=== PATIENT | male | born 1945 | race Caucasian/White ===

== ENCOUNTER 2021-08-28 14:20 | Observation (INO) | payer MEDICARE, SELFPAY ==
[2021-08-28] VITALS (7 sets, daily range): BP systolic 100–148; BP diastolic 73–87; PULSE 65–85; RESP 16–20; TEMP 36.1–36.9; O2SAT 92–97
--- NOTE | 2021-08-28 14:15 | RT.EKG_ITS ---
APPROVED REPORT Exam: Resting ECG Reason for Exam: dizzy Patient Location: E HR:100 bpm ECG Measurements Heart Rate 100 AXIS HI [id number] P [id number] QRSd 105 QRS -48 QT 377 T 144 QTc 487 Conclusion Atrial fibrillation...V-rate 70-125, irreg A-activity Left anterior fascicular block...axis(240,-40), init forces inf. Afib. LAFB. No STEMI. I have reviewed and interpreted ECG and agree with software generated interpretation.
--- NOTE | 2021-08-28 14:30 | DI.RAD_ITS ---
Exam(s) XR PORTABLE CHEST AP EXAM: XR PORTABLE CHEST AP CLINICAL HISTORY: tachcyardiac, dizzy, hypotension TECHNIQUE: 2D digital imaging was performed. COMPARISON: No exams were available for comparison FINDINGS: LUNGS: Clear. No pleural abnormality seen. Overlying monitoring leads. HEART: Enlarged. MEDIASTINUM: Aorta mildly tortuous. BONES: Degenerative changes at the AC joints and thoracic spine. IMPRESSION: No acute pulmonary findings. DATA REPOSITORY: RADIATION DOSE DELIVERED:
--- NOTE | 2021-08-28 14:45 | ED.GENADUL_ITS ---
Discharge Plan Disposition Patient Disposition: [facility] INPATIENT Condition: Stable Discharge Details Clinical Impression: Elevated troponin, Paroxysmal atrial fibrillation with RVR, Dizziness Admit Date/Time: 08/28/21 18:39 Admit Provider: Kali Sherwood Attending Provider: Kali Sherwood Primary Care Provider: None,None ED Provider: Nila Nguyen Discharge Data Discharge Date/Time-TO BE ENTERED AT DEPARTURE: 08/28/21 19:15 Medical Decision Making 75-year-old male with a history of hypertension atrial fibrillation on amlodipine, losartan/HCTZ, metoprolol and Xarelto presents for 4 days of lightheadedness, intermittent hypotension and tachycardia. Denies any chest pain or shortness of breath. EKG notes a rate of 100, atrial fibrillation, left anterior fascicular block, no STEMI, nondiagnostic. Heart rate ranged between 80s and 100 in the room, blood pressure initially 148/87, now 128/78. He denies any symptoms at present. Differential diagnosis includes arrhythmia, ACS, PE, dehydration, electrolyte abnormality. Will obtain screening labs including D-dimer, chest x-ray and give fluids. Labs reviewed. Troponin 98. D-dimer negative. Chest x-ray negative. Will plan for repeat troponin and EKG. Patient remains asymptomatic. Repeat troponin downtrending to 85. Repeat EKG unchanged. Patient's heart rate has remained between 80s and 100s. He states his baseline heart rate is usually 50s-60s. His systolic blood pressure has been in the 110s. We will plan for admission for telemetry monitoring with medication adjustment as his hypotension may be related to his tachycardia as he may have had episodes of rapid A. fib. We will continue trending troponins and EKGs with consideration for placement of monitoring and evaluation advisor upon discharge. Case discussed with hospitalist who accepts patient for admission. Medical Records Medical records reviewed: Yes I reviewed the patient's medical records. Imaging Data Radiologic Study: Radiologist's impression: XR PORTABLE CHEST AP CLINICAL HISTORY:? tachcyardiac, dizzy, hypotension TECHNIQUE:? 2D digital imaging was performed. COMPARISON:? No exams were available for comparison FINDINGS: LUNGS: Clear. No pleural abnormality seen.? Overlying monitoring leads. HEART: Enlarged. MEDIASTINUM: Aorta mildly tortuous. BONES: Degenerative changes at the AC joints and thoracic spine. IMPRESSION: No acute pulmonary findings. Lab Data Lab results reviewed: Yes I reviewed the patient's lab results. ECG Data Attestation: I personally reviewed and interpreted this ECG (s) as follows: Interpretation: rate of 100, afib, no STEMI. HPI General Date/Time Provider Initiated Documentation: 08/28/21 14:20 . Limitations to Documentation: no limitations . Information obtained by: patient . HPI Narrative: Patient is a 75-year-old male presents the ED with a complaint of dizziness for the past few days. Patient states he went snowshoeing the other day and became lightheaded during this activity. He states he then rested and the symptoms improved. He states when he returned home and was sitting the lightheadedness returned. He states he has had intermittent episodes of lightheadedness that occur at rest and with exertion. He states he has checked his blood pressure and it has been lower than usual with systolic of 105. He states his heart rate has been elevated to as high as 122. He denies any specific palpitations, chest pain or shortness of breath. He denies any recent illness including fever, nausea, vomiting, diarrhea, change in his medications, recent known exposure to coronavirus. Patient states he is visiting here from [place] and is currently present of [facility] until this spring and does not have a primary care doctor here. He denies any recent changes in his blood pressure medication and states he has not seen his primary care doctor since March 2021 when he was doing well and noted to have a normal sinus rhythm. Related Data Home Medications Medication Instructions Recorded Confirmed amlodipine 10 mg tablet 10 mg PO DAILY 08/28/21 08/29/21 atorvastatin 40 mg tablet 40 mg PO DAILY 08/28/21 08/29/21 losartan 100 1 tab PO DAILY 08/28/21 08/29/21 mg-hydrochlorothiazide 25 mg tablet metoprolol succinate 50 mg 50 mg PO DAILY 08/28/21 08/29/21 tablet,extended release 24 hr rivaroxaban 20 mg tablet (Xarelto) 20 mg PO DAILY 08/28/21 08/29/21 tamsulosin 0.4 mg capsule 0.4 mg PO DAILY 08/28/21 08/29/21 Allergies Allergy/AdvReac Type Severity Reaction Status Date / Time ibuprofen [From Motrin] Allergy Severe Anaphylaxis Unverified 08/29/21 13:22 General Stated Complaint: Dizzy/Sync HEATHER: 3 Review of Systems All systems reviewed & are unremarkable except as noted in HPI and below Constitutional Constitutional: Reports as per HPI, Denies chills and Denies fever(s) Eyes Eyes: Denies blurry vision ENT Ears, Nose, Mouth, and Throat: Reports dizziness, Denies sore throat and Denies throat swelling Cardiovascular Cardiovascular: Denies chest pain, Reports rapid heart rate and Denies dyspnea Respiratory Respiratory: Denies cough and Denies dyspnea Gastrointestinal Gastrointestinal: Denies abdominal pain, Denies diarrhea and Denies vomiting Genitourinary Genitourinary: Denies hematuria and Denies dysuria Musculoskeletal Musculoskeletal: Denies back pain and Denies numbness Integumentary/Breasts Skin/Breast: Denies lesions and Denies rash Neurologic Neurologic: Reports dizziness, Denies localized weakness and Denies numbness Allergic/Immunologic Allergic/Immunologic: Denies throat swelling PFSH All Active Problems (Updated 08/30/21 @ 00:01 by KEN JARAMILLO) Paroxysmal atrial fibrillation with RVR (Acute) Medical History (Updated 08/30/21 @ 00:01 by KEN JARAMILLO) Atrial fibrillation treated with cardioversion in October 2019 History of cardioversion HTN (hypertension) Surgical History (Updated 08/29/21 @ 13:20 by Nathaniel Morales) History of tonsillectomy Hx of transurethral resection of prostate No significant past surgical history Social History Smoking/Tobacco Use Status: Former Tobacco Use Quit Date: 06/28/68 Smoking risk assessment performed?: Yes Alcohol Intake: current Alcohol Intake frequency: a few times a week Alcohol type: beer Drug use: Never Substance use type: does not use Do you feel safe at home: Yes Do you feel safe in your relationship?: Yes Exam Const General: cooperative, healthy appearing and no acute distress Orientation: alert, awake and oriented x3 HENMT Head: normal to inspection Mouth: oral mucosae normal Eyes General: appearance normal, both eyes and all related structures Neck Neck: normal visual inspection Resp Effort & Inspection: normal respiratory effort and able to speak in complete sentences Auscultation: clear to auscultation bilaterally Cardio Rate: regular rate Rhythm: abnormal rhythm irregularly irregular GI Inspection: normal to inspection Palpation: soft, not firm, no guarding, not rigid and nontender Skin General skin exam: no rashes or lesions noted Neuro General: patient alert, patient awake and patient oriented x3 Motor: muscle tone normal throughout Extrem General: normal to inspection, full ROM and no edema Psych Appearance: grossly normal Affect: normal affect Course Vital Signs Vital signs: Vital Signs Temperature 97.5 F L 08/28/21 14:24 Pulse 82 08/28/21 14:24 Respiratory Rate 18 08/28/21 14:24 Blood Pressure 148/87 H 08/28/21 14:24 Pulse Oximetry 95 08/28/21 14:24 Temperature 97.5 F L 08/28/21 14:24 Temperature Source Temporal Artery Scan 08/28/21 14:24 Pulse 82 08/28/21 14:24 Respiratory Rate 20 08/28/21 14:34 Respiratory Effort Non-Labored 08/28/21 14:34 Respiratory Depth Normal 08/28/21 14:34 Respiratory Pattern Normal 08/28/21 14:34 Blood Pressure 148/87 H 08/28/21 14:24 Blood Pressure Position Sitting 08/28/21 14:24 Pulse Oximetry 95 08/28/21 14:24 Oxygen Delivery Method Room Air 08/28/21 14:24 Oxygen Flow Rate 0 08/28/21 14:24 Pain Level 0 08/28/21 14:34
[2021-08-28 15:04] LABS: Abs Immature Grans 0.02 10^3/uL (0.0-0.06); Absolute Basophil Count 0.04 10^3/uL (0.0-0.2); Absolute Eosinophil Count 0.17 10^3/uL (0.0-0.7); Absolute Monocyte Count 0.47 10^3/uL (0.1-0.8); Absolute Neutrophil Count 4.24 10^3/uL (1.2-6.7); Basophils % 0.6; Eosinophils % 2.4; HCT 44.2 % (40.0-50.0); HGB 15.5 g/dL (13.5-17.5); Immature Grans % 0.3; Lymphocytes % 29.8; MCH 31.1 pg (27.0-33.0); MCHC 35.1 % (32.0-36.0); MCV 88.6 fL (80-95); Monocytes % 6.7; Neutrophils % 60.2; Nucleated RBC 0 %; Platelet Count 302 10^3/uL (130-400); RBC 4.99 10^6/uL (4.36-5.78); RDW 12.5 % (11.8-14.1); RDW-SD 40.7 fL; WBC 7.04 10^3/uL (4.4-10.8)
--- NOTE | 2021-08-28 15:15 | RT.EKG_ITS ---
APPROVED REPORT Exam: Resting ECG Reason for Exam: dizzy Patient Location: E HR:80 bpm ECG Measurements Heart Rate 80 AXIS [place] 162 P 0 QRSd 106 QRS -38 QT 398 T -16 QTc 459 Conclusion Sinus rhythm...normal P axis, V-rate 60- 99 Supraventricular bigeminy...bigeminy string>4 w/ SV complexes Left axis deviation...QRS axis (-30,-90). Sinus. Left axis. Bigeminy. No STEMI. I have reviewed and interpreted ECG and agree with software generated interpretation.
[2021-08-28 15:22] LABS: ALT 31 U/L (16-63); AST 20 U/L (15-37); Albumin 4.1 g/dL (3.4-5.0); Alkaline Phosphatase 92 U/L (46-116); Anion Gap 10.8 mmol/L (3-11); BUN 16 mg/dL (7-18); Bilirubin, Total 1.1 mg/dL (0.2-1.0); CO2 26.2 mmol/L (21.0-32.0); CREATININE 1.2 mg/dL (0.70-1.30); Calcium 9.2 mg/dL (8.5-10.1); Chloride 105 mmol/L (98-107); Estimated GFR 59.18 (mL/min/1.73m2); Glucose 88 mg/dL (74-106); Magnesium 2.2 mg/dL (1.8-2.4); Potassium 3.7 mmol/L (3.5-5.1); Sodium 142 mmol/L (136-145); Total Protein 7.4 g/dL (6.4-8.2)
[2021-08-28 15:25] LABS: Troponin I 98 ng/L (<or=60)
[2021-08-28] MEDS: Normal Saline 500 ML IV (15:36)
[2021-08-28 15:40] LABS: D-Dimer 442 ng/mlFEU (<500)
[2021-08-28 17:57] LABS: Troponin I 85 ng/L (<or=60)
[2021-08-28 19:15] LABS: Source Nasal/Nares
[2021-08-28 20:15] LABS: COVID-19 PCR Negative (Negative)
--- NOTE | 2021-08-28 20:31 | HPE_ITS ---
Assessment and Plan Assessment and plan (1) Elevated troponin: Status: Acute Assessment and plan: Troponin levels are only slightly above normal. We will recheck in the morning. I suspect she has had a troponin leak from his atrial fibrillation and increased heart rate. (2) Atrial fibrillation: Assessment and plan: This may be his first recurrence of atrial fibrillation since cardioversion October 2019. This is uncertain because atrial fibrillation is often asymptomatic. He will be admitted to the hospital and had a vehicle monitor technician done. We will have cardiology consult. He should have his electrocardiogram rechecked tomorrow. He has been on anticoagulation self there is need for cardioversion it could probably be done safely. I will hold on his amlodipine tonight and start him on metoprolol 50 mg twice a day instead of once a day 50 mg controlled release. History of Present Illness History of Present Illness Chief Complaint: lightheadedness Narrative: This 75-year-old male is here because of lightheadedness and increased heart rate. He has a history of atrial fibrillation that was diagnosed in 2018. He had cardioversion in October 2019 and thinks that his atrial fibrillation has been well controlled since then. 4 days ago he was out snowshoeing and became lightheaded. He rested and felt a bit better but when he went home he felt lightheaded again and his symptoms have recurred since then. He has noticed his heart rate when she checks by his pulse oximeter to be at 100-60. He says is since his cardioversion 2 years ago his heart rate is usually about 60. He says he takes his medicine as prescribed which includes an anticoagulant and blood pressure medicines. He has had hypertension for many years and says hypertension is in his family. His blood pressures are usually about 128/78 and he says he keeps a spreadsheet of that. Last few days his blood pressures fluctuated between 98-120 systolic with diastolics of 65-78. 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 He was found to be in atrial fibrillation. His troponins has been slightly high. He gets regular exercise about twice a week. 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 Quit smoking 1968 and he drinks about once a week except perhaps on weekends when he drinks a bit more when he is watching sports. Over the last 2 to 4 weeks he has had intermittent heartburn which she says is worse after meals. He has had some relief with Pepto-Bismol and he has tried omeprazole [id number] and is not sure that has helped. About 20 years ago he had heartburn and was treated with esomeprazole with good relief. He has had both coronavirus vaccines and booster. He lives in [facility] and [facility]. He enjoys fly fishing. Review of Systems Constitutional Constitutional: Denies chills, Denies fatigue, Denies fever(s) and Denies frequent falls ENT Ears, Nose, Mouth, and Throat: Denies vertigo and Reports dizziness Cardiovascular Cardiovascular: Denies chest pain, Reports irregular heart rhythm, Denies leg edema, Reports lightheadedness and Denies dyspnea Respiratory Respiratory: Denies cough, Denies hemoptysis, Denies dyspnea and Denies wheezing Gastrointestinal Gastrointestinal: Denies abdominal pain, Denies diarrhea, Denies nausea and Denies vomiting Genitourinary Genitourinary: Denies difficulty urinating, Denies dysuria and Denies urinary incontinence Musculoskeletal Musculoskeletal: Denies back pain, Denies arthralgias and Denies numbness Neurologic Neurologic: Denies confusion, Denies vertigo, Reports dizziness, Denies frequent falls and Denies numbness Psychiatric Psychiatric: Denies confusion Endocrine Endocrine: Denies fatigue Allergic/Immunologic Allergic/Immunologic: Denies wheezing PFSH All Active Problems (Updated 08/28/21 @ 18:43 by Nila Nguyen DO) Elevated troponin (Acute) Paroxysmal atrial fibrillation with RVR (Acute) Dizziness (Acute) Medical History (Updated 08/28/21 @ 18:43 by Nila Nguyen DO) Atrial fibrillation treated with cardioversion in October 2019 HTN (hypertension) Surgical History (Updated 08/28/21 @ 15:22 by Nila Nguyen DO) No significant past surgical history Social History Smoking/Tobacco Use Status: Former Tobacco Use Smoking risk assessment performed?: Yes Alcohol Intake: current Alcohol Intake frequency: a few times a week Alcohol type: beer Drug use: Never Substance use type: does not use and hallucinogens Do you feel safe at home: Yes Do you feel safe in your relationship?: Yes Meds Allergies and Home Medications Allergies Allergy/AdvReac Type Severity Reaction Status Date / Time ibuprofen [From Motrin] Allergy Severe Other (See Unverified 08/28/21 14:28 Comment) Home Medications Medication Instructions Recorded Confirmed Type amlodipine 10 mg tablet 10 mg PO DAILY 08/28/21 08/28/21 History atorvastatin 40 mg tablet 40 mg PO DAILY 08/28/21 08/28/21 History losartan 100 1 tab PO DAILY 08/28/21 08/28/21 History mg-hydrochlorothiazide 25 mg tablet metoprolol succinate 50 mg 50 mg PO DAILY 08/28/21 08/28/21 History tablet,extended release 24 hr rivaroxaban 20 mg tablet (Xarelto) 20 mg PO DAILY 08/28/21 08/28/21 History tamsulosin 0.4 mg capsule 0.4 mg PO DAILY 08/28/21 08/28/21 History Exam Const General: cooperative, healthy appearing, comfortable, no acute distress, not ill appearing and not lethargic Nutritional Appearance: overweight HENMT Head: normal to inspection and normocephalic Eyes General: appearance normal, both eyes and all related structures Neck Neck: normal visual inspection, no lymphadenopathy and no JVD Resp Auscultation: clear to auscultation bilaterally, no rales and no wheezes Cardio Rate: regular rate Rhythm: abnormal rhythm Heart Sounds: S1 normal, S2 normal, no gallops and no murmurs GI Palpation: soft, no hepatosplenomegaly, not firm, no guarding and nontender Skin General skin exam: no rashes or lesions noted Neuro General: patient alert, patient awake and patient oriented x3 Extrem General: normal to inspection, no clubbing, no cyanosis and no edema Results Labs Result diagrams: 08/28/21 14:25 08/28/21 14:25 Labs: Laboratory Results - last 24 hr 08/28/21 08/28/21 08/28/21 14:25 14:25 14:25 WBC 7.04 RBC 4.99 Hgb 15.5 Hct 44.2 MCV 88.6 MCH 31.1 MCHC 35.1 RDW 12.5 Plt Count 302 MPV 9.0 Immature Gran % 0.3 Neutrophils % 60.2 Lymphocytes % 29.8 Monocytes % 6.7 Eosinophils % 2.4 Basophils % 0.6 Nucleated RBC % 0 Absolute Neutrophils 4.24 Absolute Lymphocytes 2.10 Absolute Monocytes 0.47 Absolute Eosinophils 0.17 Absolute Basophils 0.04 D-Dimer 442 Sodium 142 Potassium 3.7 Chloride 105 Carbon Dioxide 26.2 Anion Gap 10.8 BUN 16 Creatinine 1.2 Estimated GFR/1.73 m2 59.18 Glucose 88 Calcium 9.2 Magnesium 2.2 Total Bilirubin 1.1 H AST 20 ALT 31 Alkaline Phosphatase 92 Troponin I 98 H* Total Protein 7.4 Albumin 4.1 COVID-19 Source SARS-CoV-2 (PCR) 08/28/21 08/28/21 17:29 19:07 WBC RBC Hgb Hct MCV MCH MCHC RDW Plt Count MPV Immature Gran % Neutrophils % Lymphocytes % Monocytes % Eosinophils % Basophils % Nucleated RBC % Absolute Neutrophils Absolute Lymphocytes Absolute Monocytes Absolute Eosinophils Absolute Basophils D-Dimer Sodium Potassium Chloride Carbon Dioxide Anion Gap BUN Creatinine Estimated GFR/1.73 m2 Glucose Calcium Magnesium Total Bilirubin AST ALT Alkaline Phosphatase Troponin I 85 H* Total Protein Albumin COVID-19 Source Nasal/Nares SARS-CoV-2 (PCR) Negative Last Vital Signs Temp 36.4 C L 08/28/21 14:24 Pulse 85 08/28/21 20:22 Resp 20 08/28/21 14:57 BP 148/87 H 08/28/21 14:24 Pulse Ox 95 08/28/21 14:24
[2021-08-28] MEDS: Metoprolol 50 MG TAB PO (20:54)
[2021-08-29 03:24] VITALS: BP 107/70; PULSE 81; RESP 16; TEMP 36.7; O2SAT 94
[2021-08-29 06:24] VITALS: BP 112/74; PULSE 73; RESP 16; TEMP 36.2; O2SAT 96
[2021-08-29 07:00] VITALS: PULSE 72
[2021-08-29 07:05] LABS: TSH (W/Ref FT4) 2.42 uIU/mL (0.36-3.74)
[2021-08-29 07:08] LABS: Troponin I 92 ng/L (<or=60)
--- NOTE | 2021-08-29 07:15 | RT.EKG_ITS ---
APPROVED REPORT Exam: Resting ECG Reason for Exam: afib Patient Location: I HR:77 bpm ECG Measurements Heart Rate 77 AXIS ND [id number] P [id number] QRSd 109 QRS -40 QT 385 T -24 QTc 436 Conclusion Atrial fibrillation...V-rate 61- 97, irreg A-activity Left anterior fascicular block...axis(240,-40), init forces inf Borderline T abnormalities, inferior leads...T flat/neg, II III aVF
[2021-08-29] MEDS: hydroCHLOROthiazide 25 MG TAB PO (08:02)
[2021-08-29] MEDS: Metoprolol 50 MG TAB PO (08:02)
[2021-08-29] MEDS: Atorvastatin 40 MG TAB PO (08:02)
[2021-08-29] MEDS: Losartan 50 MG TAB 100 MG PO (08:02)
[2021-08-29] MEDS: Rivaroxaban 10 MG TABLET 20 MG PO (08:02)
[2021-08-29] MEDS: Tamsulosin 0.4 MG CAPCR PO (08:02)
--- NOTE | 2021-08-29 08:44 | W.CARDCONSUL ---
Date of service: 08/29/21 Time of Service: 08:44 Assessment and Plan Assessment and plan (1) HTN (hypertension): (2) Atrial fibrillation: Assessment and plan: Patient has recurrent atrial fibrillation. I think his symptoms of lightheadedness are more related to excessive antihypertensive therapy, in that he may need his antihypertensives reduced while he is in atrial fibrillation. Possibly reducing losartan and/or stopping hydrochlorothiazide would be advised. His heart rate is acceptable . We reviewed the nature of atrial fibrillation and is to recur over time despite any intervention. At this point I think it would be reasonable to repeat his cardioversion. He is anticoagulated with Xarelto. He is agreeable to the plan. We will try to schedule this for next week. I have no specific concerns regarding his troponin History of Present Illness History of Present Illness Chief Complaint: Lightheaded Narrative: This is a 75-year-old man who has a history of hypertension and atrial fibrillation. In early 2019 he was diagnosed with atrial fibrillation which was relatively asymptomatic. He was evaluated at [facility] in [place]. Evaluation included an echocardiogram and a stress test. He does not recall ever being treated with medication such as flecainide or amiodarone. He was treated with a synchronized cardioversion in October 2019 and subsequently maintained sinus rhythm until approximately 5 days ago. He is overall very active. He went out snowshoeing and found that he became lightheaded with activity such that he had to stop and rest. He eventually managed to get back to his house, where he had vital signs checked, with a heart rate reportedly 105 and blood pressure 100 systolic. His heart rate has been variable overall since that time. He has been intermittently lightheaded. He did not seek medical attention until yesterday when he came to the emergency room and was found to be in atrial fibrillation with an overall fairly well controlled ventricular response. Troponin was borderline. EKG showed atrial fibrillation, rate 108, left anterior fascicular block. He describes that he was a bit lightheaded this morning when he went to the bathroom. He does not have palpitations or chest discomfort He recently has had a lot of heartburn which is related to food and is relieved with Pepto-Bismol Review of Systems Cardiovascular Cardiovascular: Reports as per HPI, Denies chest pain, Reports irregular heart rhythm, Reports lightheadedness and Denies dyspnea Respiratory Respiratory: Denies dyspnea PFSH All Active Problems Elevated troponin (Acute) Paroxysmal atrial fibrillation with RVR (Acute) Dizziness (Acute) Medical History Atrial fibrillation treated with cardioversion in October 2019 HTN (hypertension) Surgical History No significant past surgical history Social History Smoking/Tobacco Use Status: Former Tobacco Use Smoking risk assessment performed?: Yes Alcohol Intake: current Alcohol Intake frequency: a few times a week Alcohol type: beer Drug use: Never Substance use type: does not use and hallucinogens Do you feel safe at home: Yes Do you feel safe in your relationship?: Yes Exam Const Other: Well-developed well-nourished looks younger than stated age no acute distress Neck Other: No neck vein distention no V waves normal carotid upstrokes no bruits Resp Auscultation: clear to auscultation bilaterally Cardio Other: Irregularly irregular rate controlled no murmur or gallop Skin Other: Warm and dry Extrem Other: No peripheral edema intact distal pulses Results Last Vital Signs Temp 36.2 C L 08/29/21 06:24 Pulse 72 08/29/21 07:00 Resp 16 08/29/21 06:24 BP 112/74 08/29/21 06:24 Pulse Ox 96 08/29/21 06:24 Labs Result diagrams: 08/28/21 14:25 08/28/21 14:25 Labs: Laboratory Results - last 24 hr 08/28/21 08/28/21 08/28/21 14:25 14:25 14:25 WBC 7.04 RBC 4.99 Hgb 15.5 Hct 44.2 MCV 88.6 MCH 31.1 MCHC 35.1 RDW 12.5 Plt Count 302 MPV 9.0 Immature Gran % 0.3 Neutrophils % 60.2 Lymphocytes % 29.8 Monocytes % 6.7 Eosinophils % 2.4 Basophils % 0.6 Nucleated RBC % 0 Absolute Neutrophils 4.24 Absolute Lymphocytes 2.10 Absolute Monocytes 0.47 Absolute Eosinophils 0.17 Absolute Basophils 0.04 D-Dimer 442 Sodium 142 Potassium 3.7 Chloride 105 Carbon Dioxide 26.2 Anion Gap 10.8 BUN 16 Creatinine 1.2 Estimated GFR/1.73 m2 59.18 Glucose 88 Calcium 9.2 Magnesium 2.2 Total Bilirubin 1.1 H AST 20 ALT 31 Alkaline Phosphatase 92 Troponin I 98 H* Total Protein 7.4 Albumin 4.1 TSH COVID-19 Source SARS-CoV-2 (PCR) 08/28/21 08/28/21 08/29/21 17:29 19:07 06:25 WBC RBC Hgb Hct MCV MCH MCHC RDW Plt Count MPV Immature Gran % Neutrophils % Lymphocytes % Monocytes % Eosinophils % Basophils % Nucleated RBC % Absolute Neutrophils Absolute Lymphocytes Absolute Monocytes Absolute Eosinophils Absolute Basophils D-Dimer Sodium Potassium Chloride Carbon Dioxide Anion Gap BUN Creatinine Estimated GFR/1.73 m2 Glucose Calcium Magnesium Total Bilirubin AST ALT Alkaline Phosphatase Troponin I 85 H* 92 H* Total Protein Albumin TSH 2.42 COVID-19 Source Nasal/Nares SARS-CoV-2 (PCR) Negative
--- NOTE | 2021-08-29 09:44 | DSE_ITS ---
Date of service: 08/29/21 Time of Service: 09:44 DS: Diagnosis Discharge Diagnosis (1) HTN (hypertension): (2) Atrial fibrillation: Discharge Plan Disposition Patient Disposition: HOME Condition: Stable Discharge Details Reason For Visit: Atrial Fibrillation Admit Date/Time: 08/28/21 18:39 Admit Provider: Kali Sherwood Attending Provider: Kali Sherwood Primary Care Provider: None,None Hospital Course Hospital Course: This is a 75-year-old man who has a history of hypertension and atrial fibrillation.? In early 2019 he was diagnosed with atrial fibrillation which was relatively asymptomatic.? He was evaluated at [facility] in [place].? Evaluation included an echocardiogram and a stress test.? He does not recall ever being treated with medication such as flecainide or amiodarone.? He was treated with a synchronized cardioversion in October 2019 and subsequently maintained sinus rhythm until approximately 5 days ago. He is overall very active.? [facility] and found that he became lightheaded with activity such that he had to stop and rest.? He eventually managed to get back to his house, where he had vital signs checked, with a heart rate reportedly 105 and blood pressure 100 systolic.? His heart rate has been variable overall since that time.? He has been intermittently lightheaded.? He did not seek medical attention until yesterday when he came to the emergency room and was found to be in atrial fibrillation with an overall fairly well controlled ventricular response.? Troponin was borderline.? EKG showed atrial fibrillation, rate 108, left anterior fascicular block.? He describes that he was a bit lightheaded this morning when he went to the bathroom.? He does not have palpitations or chest discomfort He recently has had a lot of heartburn which is related to food and is relieved with Pepto-Bismol. Troponin levels were 98 > 85 > 92. Cardiology consulted and are planning a cardioversion next week. No medication changes.l Cardiology planning cardioversion next week. Home Meds and New Rx's Prescriptions: Continued atorvastatin 40 mg Tablet 40 mg PO DAILY 0RF metoprolol succinate 50 mg Tablet Extended Release 24 Hr 50 mg PO DAILY 0RF losartan-hydrochlorothiazide 100-25 mg Tablet 1 tab PO DAILY 0RF tamsulosin 0.4 mg Capsule 0.4 mg PO DAILY 0RF amlodipine 10 mg Tablet 10 mg PO DAILY 0RF Xarelto 20 mg Tablet 20 mg PO DAILY 0RF Discharge Instructions Additional Instructions: Hold Losartan/HCTZ and Amlodipine tonight and resume tomorrow night, 08/30/21 Cont metoprolol starting tonight. Take all other meds per usual routine tonight. Stand Alone Forms: Nursing Discharge Form Referrals: Mariam Mock MD [ [facility] STAFF PHYSICIAN] - 09/02/21 (COVID TEST 09/01/21 at 11:[address] Day Surger will call you will time to arrive for procedure.) Activity:: Light activity Equipment/Supplies:: No Equipment Needed Diet:: Resume usual diet Discharge Orders Discharge Orders: Discharge Order (Routine); Ordered 08/29/21 Ordered By: Hugh Isaacs DS: Summary Time Spent with Patient providing and/or coordinating discharge services: Less than 30 minutes Status at Discharge Functional status at discharge: independent ambulation Overall status at discharge: patient is not back to baseline Mental Status: mental status grossly normal Speech and Movement: speech and movement normal Mood: congruent mood Affect: normal affect Exam Const General: cooperative, healthy appearing, comfortable and no acute distress Nutritional Appearance: overweight HENMT Head: normal to inspection and normocephalic Ears: hearing grossly normal bilaterally Eyes General: appearance normal, both eyes and all related structures Sclera: sclerae normal Neck Neck: normal visual inspection and no JVD Resp Effort & Inspection: normal respiratory effort Auscultation: clear to auscultation bilaterally Cardio Rate: regular rate Rhythm: abnormal rhythm Heart Sounds: S1 normal, S2 normal, no gallops and no murmurs GI Palpation: soft and nontender Skin General skin exam: no rashes or lesions noted Neuro General: patient alert, patient awake and patient oriented x3 Extrem General: normal to inspection and no pedal edema Psych Mental Status: mental status grossly normal Speech and Movement: speech and movement normal Mood: congruent mood Affect: normal affect DS: Data Vitals/I&O Vitals and I&O: Vital Signs Temperature 36.2 C L 08/29/21 06:24 Temperature Source Tympanic 08/29/21 06:24 Pulse 72 08/29/21 07:00 Pulse Rhythm Irregular 08/29/21 08:00 Respiratory Rate 16 08/29/21 06:24 Respiratory Effort 08/29/21 08:00 Respiratory Depth Normal 08/29/21 08:00 Respiratory Pattern Normal 08/29/21 08:00 Blood Pressure 112/74 08/29/21 06:24 Blood Pressure Position Sitting 08/28/21 14:24 Pulse Oximetry 96 08/29/21 06:24 Oxygen Delivery Method Room Air 08/29/21 06:24 Oxygen Flow Rate 0 08/29/21 06:24 Pain Level 0 08/29/21 06:24 Intake & Output 08/28/21 08/28/21 08/29/21 11:59 23:59 11:59 Weight 106.594 kg Data Completed and Pending Labs on day of discharge: Labs from last 24 hours 08/29/21 08/28/21 08/28/21 06:25 19:07 17:29 WBC RBC Hgb Hct MCV MCH MCHC RDW Plt Count MPV Immature Gran % Neutrophils % Lymphocytes % Monocytes % Eosinophils % Basophils % Nucleated RBC % Absolute Neutrophils Absolute Lymphocytes Absolute Monocytes Absolute Eosinophils Absolute Basophils D-Dimer Sodium Potassium Chloride Carbon Dioxide Anion Gap BUN Creatinine Estimated GFR/1.73 m2 Glucose Calcium Magnesium Total Bilirubin AST ALT Alkaline Phosphatase Troponin I 92 H* 85 H* Total Protein Albumin TSH 2.42 COVID-19 Source Nasal/Nares SARS-CoV-2 (PCR) Negative 08/28/21 08/28/21 08/28/21 14:25 14:25 14:25 WBC 7.04 RBC 4.99 Hgb 15.5 Hct 44.2 MCV 88.6 MCH 31.1 MCHC 35.1 RDW 12.5 Plt Count 302 MPV 9.0 Immature Gran % 0.3 Neutrophils % 60.2 Lymphocytes % 29.8 Monocytes % 6.7 Eosinophils % 2.4 Basophils % 0.6 Nucleated RBC % 0 Absolute Neutrophils 4.24 Absolute Lymphocytes 2.10 Absolute Monocytes 0.47 Absolute Eosinophils 0.17 Absolute Basophils 0.04 D-Dimer 442 Sodium 142 Potassium 3.7 Chloride 105 Carbon Dioxide 26.2 Anion Gap 10.8 BUN 16 Creatinine 1.2 Estimated GFR/1.73 m2 59.18 Glucose 88 Calcium 9.2 Magnesium 2.2 Total Bilirubin 1.1 H AST 20 ALT 31 Alkaline Phosphatase 92 Troponin I 98 H* Total Protein 7.4 Albumin 4.1 TSH COVID-19 Source SARS-CoV-2 (PCR) PFSH All Active Problems Elevated troponin (Acute) Paroxysmal atrial fibrillation with RVR (Acute) Dizziness (Acute) Medical History Atrial fibrillation treated with cardioversion in October 2019 HTN (hypertension) Surgical History No significant past surgical history Social History Smoking/Tobacco Use Status: Former Tobacco Use Smoking risk assessment performed?: Yes Alcohol Intake: current Alcohol Intake frequency: a few times a week Alcohol type: beer Drug use: Never Substance use type: does not use and hallucinogens Do you feel safe at home: Yes Do you feel safe in your relationship?: Yes
[2021-08-29 10:19] VITALS: PULSE 72
== END 2021-08-29 11:05 | disposition home or self-care (01) ==
LOC: ER 18:57 → MS 19:20
PROVIDERS: Admitting Provider Family Medicine; Emergency Provider Physician Assistant; Visit Provider Family Medicine
DX: I48.0 Paroxysmal atrial fibrillation (principal); R77.8 Other specified abnormalities of plasma proteins; I10 Essential (primary) hypertension; R42 Dizziness and giddiness; Z79.01 Long term (current) use of anticoagulants; Z87.891 Personal history of nicotine dependence; Z20.822 Contact with and (suspected) exposure to COVID-19
CPT/HCPCS: 36415; 80053; 87635; 93005; 96360; 99285; 71045; 83735; 84443; 84484; 85025; 85379; 93010; 99213; 99217; 99219; G0378

== ENCOUNTER → 2021-08-29 07:31 | Outpatient (BNVA) | payer MEDICARE, SELFPAY | PROVIDERS: Visit Provider Internal Medicine Cardiovascular Disease | DX: R69 Illness, unspecified (principal) ==

== ENCOUNTER 2021-09-01 04:13 | Outpatient (CLI) | payer MEDICARE, SELFPAY ==
[2021-09-01 13:37] LABS: Source Nasal/Nares
[2021-09-01 21:54] LABS: COVID-19 PCR Negative (Negative)
== END 2021-09-01 04:14 | disposition home or self-care (01) ==
LOC: LBO 04:13
PROVIDERS: Visit Provider Internal Medicine Cardiovascular Disease
DX: Z20.822 Contact with and (suspected) exposure to COVID-19 (principal); Z01.818 Encounter for other preprocedural examination
CPT/HCPCS: 87635; U0005

== ENCOUNTER 2021-09-02 07:22 | Day surgery (SDC) | payer MEDICARE, SELFPAY ==
--- NOTE | 2021-09-02 07:45 | RT.EKG_ITS ---
APPROVED REPORT Exam: Resting ECG Reason for Exam: Cardioversion Patient Location: O HR:90 bpm ECG Measurements Heart Rate 90 AXIS MT [id number] P [id number] QRSd 111 QRS -38 QT 375 T -6 QTc 459 Conclusion Atrial fibrillation...V-rate 66-106, irreg A-activity Ventricular premature complex...V complex w/ short R-R interval Left axis deviation...QRS axis (-30,-90)
[2021-09-02 07:50] VITALS: BP 112/79; PULSE 70; RESP 16; TEMP 36.8; O2SAT 95
[2021-09-02] MEDS: Normal Saline 1,000 ML 30 ML IV (08:08)
--- NOTE | 2021-09-02 08:35 | W.ANESPRE ---
General Info Date of Service Date Performed: 09/02/21 Height: 6 ft 1 in Weight: 108.7 kg Body Mass Index (BMI): 31.6 Surgical Procedure: Operation Date: 09/02/21 09:00 Proposed Procedure Side Surgeon p Cardioversion Mariam Mock MD Actual Procedure Side Surgeon p Cardioversion Not Applicable Mariam Mock MD Pre-Op Diagnosis Post-Op Diagnosis Atrial fibrillation Meds Allergies and Home Medications Allergies Allergy/AdvReac Type Severity Reaction Status Date / Time ibuprofen [From Motrin] Allergy Severe Anaphylaxis Verified 09/02/21 07:47 Home Medication Medication Instructions Recorded amlodipine 10 mg tablet 10 mg PO DAILY 08/28/21 atorvastatin 40 mg tablet 40 mg PO DAILY 08/28/21 losartan 100 1 tab PO DAILY 08/28/21 mg-hydrochlorothiazide 25 mg tablet metoprolol succinate 50 mg 50 mg PO DAILY 08/28/21 tablet,extended release 24 hr rivaroxaban 20 mg tablet (Xarelto) 20 mg PO DAILY 08/28/21 tamsulosin 0.4 mg capsule 0.4 mg PO DAILY 08/28/21 Current Visit Medications: Current Medications Generic Name Dose Route Start Last Admin Trade Name Freq PRN Reason Stop Dose Admin Sodium Chloride 1,000 mls @ 30 mls/hr 09/02/21 06:00 09/02/21 08:08 Saline 1000ml Bag IV 30 mls/hr INFUSION ERIKA Administration Sodium Chloride 1,000 mls @ 30 mls/hr 09/02/21 06:00 Saline 1000ml Bag IV 09/25/21 23:59 INFUSION ERIKA IV Miscellaneous Supplies 1 each 09/02/21 06:00 Iv Access IV 09/25/21 23:59 DIRECTED ERIKA Sodium Chloride 0 ml 09/02/21 06:00 Normal Saline Flush 10 Ml Syr IV 09/25/21 23:59 PRN PRN Sodium Chloride 0 ml 09/02/21 06:00 Normal Saline 10 Ml Vial IJ 09/25/21 23:59 DIRECTED PRN Sterile Water 0 ml 09/02/21 06:00 Water,Injection,Sterile 10 Ml Vial IJ 09/25/21 23:59 DIRECTED PRN PFSH Active Problems Active Problems: Problem Status Onset Code Paroxysmal atrial fibrillation with RVR I48.0 Medical History Medical History Atrial fibrillation treated with cardioversion in October 2019 History of cardioversion HTN (hypertension) Surgical History Surgical History History of tonsillectomy Hx of transurethral resection of prostate No significant past surgical history Tobacco Smoking/Tobacco Use Status: Former Tobacco Use Alcohol Alcohol Intake: current Alcohol intake frequency: a few times a week Alcohol type: beer Substance Use Substance use: Never Substance use type: does not use and hallucinogens Vital Signs and Lab Results Vital Signs Most Recent Vital Signs in EMR: Most Recent Vital Signs Temp Pulse Resp BP Pulse Ox 36.8 C 70 16 112/79 95 09/02/21 07:50 09/02/21 07:50 09/02/21 07:50 09/02/21 07:50 09/02/21 07:50 Lab Results Blood Type / Crossmatch: No Data to Display Complete Blood Count: White Blood Count 7.04 10^3/uL (4.4-10.8) 08/28/21 14:25 08/28/21 Red Blood Count 4.99 10^6/uL (4.36-5.78) 08/28/21 14:25 08/28/21 Hemoglobin 15.5 g/dL (13.5-17.5) 08/28/21 14:25 08/28/21 Hematocrit 44.2 % (40.0-50.0) 08/28/21 14:25 08/28/21 Platelet Count 302 10^3/uL (130-400) 08/28/21 14:25 08/28/21 Complete Metabolic Panel: Sodium Level 142 mmol/L (136-145) 08/28/21 14:25 08/28/21 Potassium Level 3.7 mmol/L (3.5-5.1) 08/28/21 14:25 08/28/21 Chloride Level 105 mmol/L (98-107) 08/28/21 14:25 08/28/21 Carbon Dioxide Level 26.2 mmol/L (21.0-32.0) 08/28/21 14:25 08/28/21 Blood Urea Nitrogen 16 mg/dL (7-18) 08/28/21 14:25 08/28/21 Creatinine 1.2 mg/dL (0.70-1.30) 08/28/21 14:25 08/28/21 Estimated GFR/1.73 m2 59.18 (mL/min/1.73m2) 08/28/21 14:25 08/28/21 Magnesium Level 2.2 mg/dL (1.8-2.4) 08/28/21 14:25 08/28/21 Calcium Level 9.2 mg/dL (8.5-10.1) 08/28/21 14:25 08/28/21 Albumin 4.1 g/dL (3.4-5.0) 08/28/21 14:25 08/28/21 Glucose Level 88 mg/dL (74-106) 08/28/21 14:25 08/28/21 Liver Function Panel: Alanine Aminotransferase (ALT/SGPT) 31 U/L (16-63) 08/28/21 14:25 08/28/21 Aspartate Amino Transf (AST/SGOT) 20 U/L (15-37) 08/28/21 14:25 08/28/21 Coagulation Panel: D-Dimer 442 ng/mlFEU (<500) 08/28/21 14:25 08/28/21 Cardiac Panel: Troponin I 92 ng/L (<or=60) H* 08/29/21 Arterial Blood Gas: No Data to Display Venous Blood Gas: No Data to Display Pancreas Panel: No Data to Display Thyroid Panel: Thyroid Stimulating Hormone (TSH) 2.42 uIU/mL (0.36-3.74) 08/29/21 06:25 08/29/21 Infectious Disease: Coronavirus (COVID-19)(PCR) Negative (Negative) 09/01/21 11:11 09/01/21 Coronavirus 2019 Source Nasal/Nares 09/01/21 11:11 09/01/21 Blood Cultures: No Data to Display Toxicology Panel: No Data to Display Anesthesia Assessment and Plan Anesthesia History Personal History: No History of Anesthesia Complications Family History: No Family History of Anesthesia Complications Exercise Tolerance Exercise Tolerance: Metabolic Equivalents>4 Pertinent Negatives Pertinent Negatives: No Symptoms of GERD Cardiac & Pulmonary Exam Cardiac Exam: Normal S1/S2 Heart Sounds Pulmonary Exam: Clear Bilateral Breath Sounds Implantable Cardiac Device Does patient have a Pacemaker or an ICD?: No Airway Exam Known Difficult Airway: No Mallampati Class: 2 Mouth Opening: Normal (> 3cm) Thyromental Distance: Greater than 3 cm Neck Range of Motion: Full ROM Neck Circumference: Normal Teeth Condition: Normal Dentition ASA Classification ASA Score: ASA 3 Emergency Case?: No NPO Status NPO Status: NPO Clears >2 hours, Solids >8 hours Anesthesia Plan Resuscitation Status: Full Code Anesthesia Technique: General Anesthesia Airway Planned: Natural Airway Monitors Used: Standard Monitors
[2021-09-02 08:38] VITALS: BMI 31.6
--- NOTE | 2021-09-02 09:15 | RT.EKG_ITS ---
APPROVED REPORT Exam: Resting ECG Reason for Exam: Cardioversion POST Patient Location: O HR:69 bpm ECG Measurements Heart Rate 69 AXIS MN 154 P 83 QRSd 119 QRS -34 QT 433 T -27 QTc 439 Conclusion Sinus rhythm...normal P axis, V-rate 60- 99 Atrial premature complexes...SV complexes w/ short R-R intvls Nonspecific intraventricular conduction delay...QRSd >115mS, not LBBB/RBBB
[2021-09-02 09:19] VITALS: BP 94/70; PULSE 60; RESP 16; TEMP 36.6; O2SAT 94
--- NOTE | 2021-09-02 09:29 | W.ANESPOSTOP ---
Postoperative Evaluation Date, Time and Location Date Performed: 09/02/21 Time Performed: 09:29 Patient Location: Day Surgery Unit Vital Signs Most Recent Imported Vital Signs: Most Recent Vital Signs Temp Pulse Resp BP Pulse Ox 36.6 C 60 16 94/70 L 94 09/02/21 09:19 09/02/21 09:19 09/02/21 09:19 09/02/21 09:19 09/02/21 09:19 Pain Score Most Recent Pain Score: Most Recent Pain Score Pain Level 0 09/02/21 09:19 Assessment Mental Status: Awake (Alert & Oriented to Patient Baseline) Airway and Respiratory Function: Patent airway with normal (patient baseline) respiratory exam Cardiovascular Function: Hemodynamically Stable Hydration Status: Adequately Hydrated Nausea & Vomiting: No Nausea or Vomiting Pain: Pt. Denies Any Pain Peripheral Nerve Block: Patient did not receive a nerve block
--- NOTE | 2021-09-02 09:31 | W.CARDVER ---
Date of service: 09/02/21 Time of Service: 09:38 Cardioversion DATE OF PROCEDURE: 09/02/21 PRE-OP DIAGNOSES: Atrial fibrillation Anesthesia Type: MAC Indications: Atrial fibrillation Procedure Description: Patient was connected to the Zoll device and underwent continuous EKG, pulse oximetry and blood pressure monitoring. Sedation was provided by anesthesia. Once patient had been successfully sedated. A synchronized 150 W second shock was delivered with anabaptist of sinus rhythm. Patient tolerated procedure without difficulty and was sent to the recovery room
--- NOTE | 2021-09-02 09:40 | W.CARDVER ---
Date of service: 09/02/21 Time of Service: 09:38
--- NOTE | 2021-09-02 09:41 | W.PM.DSUDISC ---
Discharge Plan Disposition Patient Disposition: HOME Condition: Good Discharge Details Attending Provider: Mariam Mock Primary Care Provider: None,None Home Meds and New Rx's Prescriptions: No Action atorvastatin 40 mg Tablet 40 mg PO DAILY 0RF metoprolol succinate 50 mg Tablet Extended Release 24 Hr 50 mg PO DAILY 0RF losartan-hydrochlorothiazide 100-25 mg Tablet 1 tab PO DAILY 0RF tamsulosin 0.4 mg Capsule 0.4 mg PO DAILY 0RF amlodipine 10 mg Tablet 10 mg PO DAILY 0RF Xarelto 20 mg Tablet 20 mg PO DAILY 0RF Discharge Instructions Stand Alone Forms: Anesthesia Discharge Inst., DSU Cardioversion Post-Op Diet:: Normal Diet Discharge Orders Discharge Orders: Discharge Order (Routine); Ordered 09/02/21 Ordered By: Mariam Mock
--- NOTE | 2021-09-02 09:42 | W.CARDVER ---
Date of service: 09/02/21 Time of Service: 09:42
[2021-09-02 09:49] VITALS: BP 91/69; PULSE 53; RESP 16; TEMP 36.6; O2SAT 95
== END 2021-09-02 10:25 | disposition home or self-care (01) ==
PROVIDERS: Visit Provider Internal Medicine Cardiovascular Disease
PROC: 5A2204Z Restoration of Cardiac Rhythm, Single (ICD-10-PCS; CPT 92960; principal; 2021-09-02 09:00)
DX: I48.0 Paroxysmal atrial fibrillation (principal); I10 Essential (primary) hypertension; Z87.891 Personal history of nicotine dependence
CPT/HCPCS: 92960; 93005; 93010; J2001; J2405; J2704

== ENCOUNTER 2021-09-15 10:51 | Outpatient (CLI) | payer MEDICARE, SELFPAY ==
--- NOTE | 2021-09-15 10:45 | RT.EKG_ITS ---
APPROVED REPORT Exam: Resting ECG Reason for Exam: 2WK Post Cardioversion Patient Location: O HR:58 bpm ECG Measurements Heart Rate 58 AXIS ME 142 P 77 QRSd 112 QRS -40 QT 446 T 4 QTc 439 Conclusion Sinus rhythm...normal P axis, V-rate 50- 99 Borderline IVCD with LAD...QRSd >112mS, axis(-90,-30)
== END 2021-09-15 10:52 | disposition home or self-care (01) ==
LOC: DI.CARD 10:55
PROVIDERS: Visit Provider Internal Medicine Cardiovascular Disease
DX: I48.0 Paroxysmal atrial fibrillation (principal); Z98.890 Other specified postprocedural states
CPT/HCPCS: 93010

== ENCOUNTER → 2021-09-15 10:51 | Outpatient (BNVA) | payer MEDICARE, SELFPAY | PROVIDERS: Visit Provider Internal Medicine Cardiovascular Disease | DX: I48.0 Paroxysmal atrial fibrillation (principal); I10 Essential (primary) hypertension; Z98.890 Other specified postprocedural states | CPT/HCPCS: 93005; 99214; 99213 ==